=== PATIENT | female | born 1995 | race Caucasian/White ===

== ENCOUNTER 2023-08-02 20:10 | Outpatient (REF) | payer OTHER, MEDICAID, SELFPAY ==
[2023-08-09 17:07] LABS: Age Gdln ACOG Testing Note (.); HPV Aptima Negative (Negative); IGP, rfx Aptima HPV ASCU Note (.)
== END 2023-08-02 20:11 | disposition home or self-care (01) ==
LOC: LAB 20:10
PROVIDERS: Visit Provider Physician Assistant
DX: Z01.419 Encounter for gynecological examination (general) (routine) without abnormal findings (principal)
CPT/HCPCS: G0145